=== PATIENT | female | born 1965 | race Caucasian/White ===

== ENCOUNTER → 2018-04-07 | Outpatient (CLI) | payer OTHER ==
[2006-04-15 11:35] VITALS: TEMP 98.5
[~2018-04-07] MED LIST: ACCUPRIL20TAB PO; B/P MED; FORTAMET500 MG PO; NO HOME MEDICATIONS; UNABLE; [UNRECOGNIZED DRUG - REMARK]
== END ==
LOC: MC.RAD 10:00
DX: Z12.31 Encounter for screening mammogram for malignant neoplasm of breast (principal)

== ENCOUNTER → 2019-05-14 | Outpatient (CLI) | payer OTHER ==
[2006-04-15 11:35] VITALS: TEMP 98.5
== END ==
LOC: MC.RAD 09:15
DX: Z12.31 Encounter for screening mammogram for malignant neoplasm of breast (principal)

== ENCOUNTER → 2020-06-06 | Outpatient (CLI) | payer OTHER ==
[2006-04-15 11:35] VITALS: TEMP 98.5
== END ==
LOC: MC.RAD 11:06
DX: Z12.31 Encounter for screening mammogram for malignant neoplasm of breast (principal)

== ENCOUNTER → 2021-06-06 | Outpatient (CLI) | payer OTHER | LOC: COL.RAD 08:40 | DX: D69.6 Thrombocytopenia, unspecified (principal) ==

== ENCOUNTER → 2021-07-25 | Outpatient (CLI) | payer OTHER | LOC: MC.RAD 11:10 | DX: Z12.31 Encounter for screening mammogram for malignant neoplasm of breast (principal) ==

== ENCOUNTER → 2023-08-21 | Outpatient (CLI) | payer BC ==
[2006-04-15 11:35] VITALS: TEMP 98.5
[2006-04-15 14:00] VITALS: BP 116/64; PULSE 87
== END ==
LOC: MC.RAD 09:00
DX: Z12.31 Encounter for screening mammogram for malignant neoplasm of breast (principal)

== ENCOUNTER → 2024-01-21 | Outpatient (CLI) | payer BC ==
[2006-04-15 11:35] VITALS: TEMP 98.5
[2024-01-21 18:33] LABS: BAND 8 % (0-10); BASOPHIL 2 % (0-2); EOSINOPHIL 2 % (0-4); LYMPHOCYTE 34 % (20.0-51.0); MYELOCYTE 2 % (0-0); NEUTROPHILS 48 % (42.0-75.2)
== END ==
LOC: COL.LAB 12:41
PROVIDERS: Family Medicine
DX: D69.6 Thrombocytopenia, unspecified (principal); K76.0 Fatty (change of) liver, not elsewhere classified; R16.1 Splenomegaly, not elsewhere classified

== ENCOUNTER → 2024-03-04 | Outpatient (CLI) | payer BC ==
[~2024-03-04] MED LIST changes: +Iohexol 300 - 100 ML VIAL IV ONE; +NS 100 ML IV SCH
== END ==
LOC: COL.RAD 14:43
DX: K76.0 Fatty (change of) liver, not elsewhere classified (principal); K76.89 Other specified diseases of liver; R16.1 Splenomegaly, not elsewhere classified; D69.6 Thrombocytopenia, unspecified
CPT/HCPCS: Q9967